=== PATIENT | female | born 1995 | race Native Hawaiian/Other Pacific Islander ===

== ENCOUNTER 2017-09-03 20:55 | Outpatient (CLI) | payer BC, OTHER | END 2017-09-03 20:58 | disposition short-term general hospital (02) | LOC: AMB 20:55 | DX: M54.89 Other dorsalgia (principal); V43.62XA Car passenger injured in collision with other type car in traffic accident, initial encounter; Y92.414 Local residential or business street as the place of occurrence of the external cause | CPT/HCPCS: A0425; A0427 ==

== ENCOUNTER 2017-09-03 21:14 | Emergency (ER) | payer BC, OTHER ==
[~2017-09-03] VITALS: Ht 167.6 cm; Wt 68.9 kg
== END 2017-09-04 00:24 | disposition home or self-care (01) ==
LOC: ED 21:14
DX: S29.012A Strain of muscle and tendon of back wall of thorax, initial encounter (principal); V43.62XA Car passenger injured in collision with other type car in traffic accident, initial encounter
CPT/HCPCS: 99283

== ENCOUNTER 2020-12-13 13:11 | Emergency (ER) | payer BC ==
[~2020-12-13] VITALS: Ht 167.6 cm; Wt 79.4 kg
[2020-12-13 13:29] VITALS: TEMP 97.4
[2020-12-13 14:12] LABS: PLATELET COUNT 318 K/uL (152-353)
[2020-12-13 14:24] LABS: POTASSIUM 4.6 mmol/L (3.6-5.2)
[2020-12-13 16:11] VITALS: BP 143/75
== END 2020-12-13 16:11 | disposition home or self-care (01) ==
LOC: ED 13:11
PROVIDERS: Hospitalist
DX: K52.89 Other specified noninfective gastroenteritis and colitis (principal); R11.2 Nausea with vomiting, unspecified; R19.7 Diarrhea, unspecified; Z03.818 Encounter for observation for suspected exposure to other biological agents ruled out
CPT/HCPCS: 36415; 80053; 81000; 81025; 82150; 83690; 85027; 87635; 96360; 96361; 96365; 96375; 99284; J0696; J2405; U0003